=== PATIENT | male | born 1950 | race Caucasian/White ===

== ENCOUNTER 2017-07-12 05:58 | Emergency (ER) | payer MEDICARE, OTHER ==
[2017-07-12 06:53] LABS: AUTOMATED NEUTROPHIL # 3.8 TH/MM3 (1.8-7.7); BASOPHIL % 0.7 % (0.0-2.0); EOSINOPHIL # 0.2 TH/MM3 (0-0.4); EOSINOPHIL % 2.6 % (0.0-4.0); HEMATOCRIT 44.1 % (39.0-51.0); HEMO FLAGS DIFF FINAL; HEMOGLOBIN 14.6 GM/DL (13.0-17.0); LYMPH % 28.1 % (9.0-44.0); LYMPHOCYTE # 1.8 TH/MM3 (1.0-4.8); MEAN CELL VOLUME 89.5 FL (80.0-100.0); MEAN CORPUSCULAR HEMOGLOBIN 29.5 PG (27.0-34.0); MEAN PLATELET VOLUME 8.6 FL (7.0-11.0); MONO % 9.3 % (0.0-8.0); MONOCYTE # 0.6 TH/MM3 (0-0.9); NEUT % 59.3 % (16.0-70.0); PLATELET COUNT 263 TH/MM3 (150-450); RED BLOOD COUNT 4.93 MIL/MM3 (4.50-5.90); RED CELL DISTRIBUTION WIDTH 13.1 % (11.6-17.2); WHITE BLOOD COUNT 6.4 TH/MM3 (4.0-11.0)
[2017-07-12 06:58] LABS: CHLORIDE 107 MEQ/L (98-107); POTASSIUM 3.9 MEQ/L (3.5-5.1); SODIUM (NA) 141 MEQ/L (136-145)
[2017-07-12 07:02] LABS: ALBUMIN 3.8 GM/DL (3.4-5.0); ANION GAP 7 MEQ/L (5-15); APTT (PATIENT) 29.2 SEC (24.3-30.1); BICARBONATE 26.8 MEQ/L (21.0-32.0); CALCIUM 8.9 MG/DL (8.5-10.1); GLUCOSE,RANDOM 151 MG/DL (74-106); LIPASE 163 U/L (73-393); PROTHROMBIN TIME - PATIENT 9.9 SEC (9.8-11.6)
[2017-07-12 07:03] LABS: BLOOD UREA NITROGEN 14 MG/DL (7-18)
[2017-07-12 07:05] LABS: ALT (GPT) 23 U/L (12-78); AST (GOT) 18 U/L (15-37)
[2017-07-12 07:06] LABS: CREATININE 0.91 MG/DL (0.60-1.30); GLOMERULAR FILTRATION RATE 83 ML/MIN (>89)
[2017-07-12 07:07] LABS: TOTAL BILIRUBIN ADULT 0.5 MG/DL (0.2-1.0); TOTAL PROTEIN 7.6 GM/DL (6.4-8.2)
[2017-07-12 07:08] LABS: ALKALINE PHOSPHATASE 74 U/L (45-117)
[2017-07-12] MEDS: PANTOPRAZOLE SODIUM 40 MG VIAL IV PUSH (07:33)
== END 2017-07-12 07:44 | disposition short-term general hospital (02) ==
LOC: PHED 05:58
DX: R13.10 Dysphagia, unspecified (principal); R04.2 Hemoptysis; E11.9 Type 2 diabetes mellitus without complications; Z72.0 Tobacco use
CPT/HCPCS: 80053; 83690; 85025; 85610; 85730; 96374; 99284-25